=== PATIENT | female | born 1995 | race Caucasian/White ===

== ENCOUNTER 2023-01-18 10:50 | Outpatient (OUT) | payer MEDICAID, SELFPAY ==
[2023-01-18 11:34] LABS: Estimated Average Glucose 88 mg/dL; Glycohemoglobin A1C 4.7 % (4.5-6.2)
[2023-01-18 11:35] LABS: INR 0.97; Partial Thromboplastin Time 27.5 sec (22.3-36.2); Prothrombin Time 10.3 sec (9.0-11.6)
[2023-01-18 11:40] LABS: HCG Quantitative <1 mIU/mL
[2023-01-18 11:43] LABS: Thyroid Stimulating Hormone 0.739 uIU/mL (0.358-3.740)
[2023-01-18 13:46] LABS: Free T4 0.96 ng/dL (0.76-1.46)
== END 2023-01-18 10:51 | disposition home or self-care (01) ==
LOC: LAB 10:54
PROVIDERS: PCP Family Medicine; Visit Provider Obstetrics & Gynecology
DX: N92.0 Excessive and frequent menstruation with regular cycle (principal)
CPT/HCPCS: 36415; 83036; 84439; 84443; 84702; 85610; 85730

== ENCOUNTER 2023-01-21 10:55 | Outpatient (OUT) | payer MEDICAID, SELFPAY ==
--- NOTE | 2023-01-21 11:00 | US_ITS ---
The [address] [address] Patient Name: KELSIE SORIANO MRN: [id number] date: 1995 Sex: F Assigned Patient Location: US Current Patient Location: US Accession/Order Number: [id number] Exam Date: 01/21/2023 11:02 Report Date: 01/21/2023 16:02 At the request of: MAGI PRESTON Procedure: US pelvis transvaginal US pelvis transvaginal CLINICAL HISTORY: Menorrhagia With Regular Cycle N92.0 COMPARISON: 01/22/2022 CT pelvis. TECHNIQUE: Transvaginal transverse and longitudinal real-time grayscale echograms of the pelvis is performed. Color duplex and doppler spectral analysis performed. FINDINGS: The uterus measures 9.2 x 4.2 x 5.8 cm in size. Uterus is anteverted. The endometrial stripe thickness is up to 10 mm. The right ovary measures 1.9 x 3.2 x 1.6 cm and has normal appearance. Difficult to ascertain intraovarian blood flow due to the high lateral ovarian location but no gross concern for torsion based on sonographic appearance. The left ovary measures 2.2 x 2.5 x 2.4 cm and has normal appearance. Normal intraovarian blood flow. There is no free fluid in the posterior cul-de-sac. IMPRESSION: Normal for age pelvic ultrasound. Electronically authenticated by: SAMM KLEIN Date: 01/21/2023 16:02
== END 2023-01-21 10:56 | disposition home or self-care (01) ==
LOC: US 10:55
PROVIDERS: PCP Family Medicine; Visit Provider Obstetrics & Gynecology
DX: N92.0 Excessive and frequent menstruation with regular cycle (principal)
CPT/HCPCS: 76830

== ENCOUNTER 2023-02-02 21:05 | Outpatient (REF) | payer MEDICAID, SELFPAY ==
[2023-02-07 11:08] LABS: Age Gdln ACOG Testing Note (.); IGP, rfx Aptima HPV ASCU Note (.)
== END 2023-02-02 21:06 | disposition home or self-care (01) ==
LOC: LAB 21:05
PROVIDERS: PCP Family Medicine; Visit Provider Obstetrics & Gynecology
DX: Z12.4 Encounter for screening for malignant neoplasm of cervix (principal); Z11.51 Encounter for screening for human papillomavirus (HPV)
CPT/HCPCS: G0145

== ENCOUNTER 2023-02-08 07:49 | Outpatient (OUT) | payer MEDICAID, SELFPAY | END 2023-02-08 07:50 | disposition home or self-care (01) | LOC: PST 07:49 | PROVIDERS: PCP Family Medicine; Visit Provider Obstetrics & Gynecology | DX: Z01.818 Encounter for other preprocedural examination (principal); N92.0 Excessive and frequent menstruation with regular cycle; N93.9 Abnormal uterine and vaginal bleeding, unspecified; R10.2 Pelvic and perineal pain ==

== ENCOUNTER 2023-02-11 06:10 | Day surgery (SDC) | payer MEDICAID, SELFPAY ==
[2023-02-08 08:18] VITALS: BP 115/78; PULSE 78; RESP 14; TEMP 36.6; O2SAT 99; BMI 31.0
[2023-02-11] VITALS (10 sets, daily range): BP systolic 110–138; BP diastolic 70–80; PULSE 66–86; RESP 11–17; TEMP 36.4; O2SAT 96–99; BMI 30.9
[2023-02-11 06:29] LABS: Basophils Percent Auto 0.5 % (0.2-2.0); Eosinophils Absolute Auto 0.2 10^3/uL (0.0-0.7); Eosinophils Percent Auto 2.4 % (0.9-7.0); Hemoglobin 12.6 g/dL (12.0-16.0); Immature Granulocytes Abs Auto 0.03 10^3/uL (0.00-0.03); Immature Granulocytes Pct Auto 0.4 % (0.0-0.5); Lymphocytes Absolute Auto 1.8 10^3/uL (1.2-3.8); Lymphocytes Percent Auto 24.4 % (20.5-60.0); Mean Corpuscular HGB Conc 34.1 g/dL (29.9-35.2); Mean Corpuscular Hemoglobin 28.3 pg (26.7-34.0); Mean Corpuscular Volume 83.1 fL (81.0-99.0); Monocytes Absolute Auto 0.6 10^3/uL (0.3-0.8); Neutrophils Absolute Auto 4.8 10^3/uL (1.4-6.5); Neutrophils Percent Auto 64.3 % (43.0-75.0); Platelet Count 247 10^3/uL (150-450); Red Blood Count 4.45 10^6/uL (4.20-5.40); Red Cell Distribution Width 12.7 % (11.0-15.0); White Blood Count 7.4 10^3/uL (4.0-11.0)
[2023-02-11 06:51] LABS: HCG Quantitative <1 mIU/mL
[2023-02-11] MEDS: LACTATED RINGER'S SOLUTION 1,000 ML 50 ML IV (07:03)
--- NOTE | 2023-02-11 08:24 | PC.NURSE ---
Peripad in place with no drainage noted.
--- NOTE | 2023-02-11 08:31 | PC.NURSE ---
Peripad continues clean and dry at this time.
--- NOTE | 2023-02-11 08:44 | PM.ONB ---
Brief Operative Note Date of procedure: 02/11/23 Pre-op diagnosis: menorrhagia Post-op diagnosis: same Procedure: The patient was taken back to the OR where she was prepped and draped in the normal sterile fashion after being placed in the dorsal lithotomy position, after being placed under general anesthesia without difficulty. The anterior lip was grasped with a single tooth tenaculum. The patient was then gently sounds. The patient was gently sounded using Hegar dilators and the hysteroscope was passed through the cervix into the uterus where both ostia were seen. No gross evidence of polyps, fibroids or malignancy. A weighted speculum was placed in the patient?s vagina, the anterior tip of the cervix was identified and grasped with a single tooth tenaculum. The patient was gently sounded to roughly 10 cm. The cervical length was noted to be 5 cm. The Erna ablation apparatus was set to approximately 5 in length. This was placed in through the cervix and into the uterus. After the seal was tested, at that time the total ablation of 120 seconds was performed with the Erna without difficulty. All instruments were removed from the vagina. Anesthesia: KEY Surgeon: Bulmaro Spain Pathology: none sent Condition: stable Disposition: PACU
== END 2023-02-11 09:33 | disposition home or self-care (01) ==
PROVIDERS: PCP Family Medicine; Visit Provider Obstetrics & Gynecology
PROC: (CPT 952; principal; 2023-02-11 07:30)
DX: N92.0 Excessive and frequent menstruation with regular cycle (principal); N93.9 Abnormal uterine and vaginal bleeding, unspecified; R10.2 Pelvic and perineal pain; Z98.51 Tubal ligation status
CPT/HCPCS: 58563; 36415; 84702; 85025; J2704

== ENCOUNTER 2024-03-08 08:54 | Outpatient (OUT) | payer MEDICAID, SELFPAY ==
[2024-03-08 09:07] LABS: Basophils Percent Auto 0.5 % (0.2-2.0); Eosinophils Absolute Auto 0.1 10^3/uL (0.0-0.7); Eosinophils Percent Auto 2.2 % (0.9-7.0); Hematocrit 40.1 % (36.0-48.0); Hemoglobin 13.5 g/dL (12.0-16.0); Immature Granulocytes Abs Auto 0.01 10^3/uL (0.00-0.03); Immature Granulocytes Pct Auto 0.2 % (0.0-0.5); Lymphocytes Absolute Auto 1.4 10^3/uL (1.2-3.8); Lymphocytes Percent Auto 24.2 % (20.5-60.0); Mean Corpuscular HGB Conc 33.7 g/dL (29.9-35.2); Mean Corpuscular Hemoglobin 28.7 pg (26.7-34.0); Mean Corpuscular Volume 85.1 fL (81.0-99.0); Mean Platelet Volume 10.4 fL (9.5-13.5); Monocytes Absolute Auto 0.4 10^3/uL (0.3-0.8); Monocytes Percent Auto 7.4 % (1.7-12.0); Neutrophils Absolute Auto 3.9 10^3/uL (1.4-6.5); Neutrophils Percent Auto 65.5 % (43.0-75.0); Platelet Count 270 10^3/uL (150-450); Red Blood Count 4.71 10^6/uL (4.20-5.40); Red Cell Distribution Width 12.4 % (11.0-15.0); White Blood Count 5.9 10^3/uL (4.0-11.0)
[2024-03-08 10:54] LABS: Alanine Aminotransferase 22 U/L (14-59); Albumin Globulin Ratio 1.2; Albumin Level 4.1 g/dL (3.4-5.0); Alkaline Phosphatase 67 U/L (46-116); Anion Gap 11.4; Aspartate Amino Transferase 12 U/L (15-37); BUN Creatinine Ratio 14.3; Bilirubin Total 1.7 mg/dL (0.2-1.0); Calcium 9.2 mg/dL (8.5-10.1); Carbon Dioxide 30.3 mmol/L (21.0-32.0); Chloride 101 mmol/L (98-107); Cholesterol 158 mg/dL (<=200); Estimated GFR (African America >60 (>=60); Estimated GFR (Non-African Ame >60 (>=60); Free T3 2.98 pg/mL (2.18-3.98); Globulin 3.5 g/dL; Glucose 95 mg/dL (74-106); HDL Cholesterol 40 mg/dL (40-60); LDL Cholesterol Calculated 104.8 mg/dL; Potassium 3.7 mmol/L (3.5-5.1); Sodium 139 mmol/L (136-145); Thyroid Stimulating Hormone 1.044 uIU/mL (0.358-3.740); Total Protein 7.6 g/dL (6.4-8.2); Triglycerides 66 mg/dL (<=150); VLDL CHOLESTEROL 13.2 mg/dL
[2024-03-08 11:39] LABS: Estimated Average Glucose 100 mg/dL; Glycohemoglobin A1C 5.1 % (4.5-6.2)
[2024-03-09 10:11] LABS: Insulin 8.7 uIU/mL (2.6-24.9)
== END 2024-03-08 08:55 | disposition home or self-care (01) ==
LOC: LAB 08:55
PROVIDERS: PCP Family Medicine; Visit Provider Family Medicine
DX: E66.9 Obesity, unspecified (principal); R73.09 Other abnormal glucose
CPT/HCPCS: 36415; 80053; 80061; 83036; 83525; 84436; 84443; 84481; 85025

== ENCOUNTER 2025-04-03 11:53 | Emergency (ER) | payer SELFPAY ==
--- OUTSIDE RECORDS SUMMARY | 2024-04-10 06:15 | XMS_ITS ---
Author Organization The [facility] in [place] Address [address] [place] [address] Care Team Providers Care Tagman Name Role Phone Bruce Ramirez Primary Care Provider [phone] Allergies No Known Allergies REASON FOR VISIT diet check Medications Medication SIG (Take, Route, Fr equency, Duration) Notes Start Date End Date Status Adipex-P 37.5 MG 1 tablet before sheyla kfast Orally Once a day 04/10/2024 Active Social History Tobacco Use: Social History Observation Description Date Details (start date - stop date) Former Smoker 07/25/2017 - 07/25/2020 Tobacco Control (Standard) Question Answer Notes Tobacco use: Former smoker When did you start smoking? 07/25/2017 When did you stop smoking? 07/25/2020 How long has it been since y ou last smoked? 1-5 years Additional Findings: Tobacco non-user Ex -moderate cigarette smoker (10-19/day) Vital Signs Weight 172 lbs 04/10/2024 Height 66 in 04/10/2024 Blood pressure systolic 118 mm Hg 04/10/20 24 Blood pressure diastolic 72 mm Hg 024 BMI 27.76 kg/m2 04/10/2024 Encounters Encounter Location Date Provider Diagnosis [facility] [address] [place] [address] 04/10/2024 Bruce Ramirez Obesity E66.9 Assessments Encounter Date Diagnosis (ICD Code) Assessment Notes Treatment Notes Treatment Clinical Notes Section Notes 04/10/2024 Obesity (ICD-10 - E66.9) Plan Of Treatment Medication Medication Name Sig Start Date Stop Date Notes Adipex-P 37.5 MG 1 tablet before sheyla kfast Orally Once a day 04/10/2024 Progress Notes * Anastacia MUNOZ GDOB: [birth year] (28 yo F)Acc No.[id number]:04/10/2024 Progress Note Patient: Anastacia ARCINIEGA Provider: Maria A Ramirez ([facility])MD :1995 A ge:28 Y S ex:Female Date:04/10/2024 Address:[address] [place], [place] [address] Check In:10:16 AM ESTCheck O ut:10:56 AM EST Subjective: * Chief Complaints: * 1 . Diet check. * HPI: G eneral: finsihed 1 month lost 8 lb. * ROS: E ENT: hearing changes d enies. v isual changes d enies.?non-healing mouth sores d enies. s wollen glands or neck lumps d enies. h oarseness d enies. s ore throat d enies. d ifficulty swallowing d enies. n ose bleeds d enies. n dominic congestion d enies. e ar ache d enies. e ar discharge?denies. r inging in ears d enies. l ight sensitivity d enies. e ye pain d enies. b lurring d enies. e ye irritation d enies. d ouble vision d enies.?vision loss d enies. G eneral/Constitutional: Sweats: D enies. F atigue d enies. S leep problems d enies. A norexia d enies. M alaise d enies. W eight loss d enies.?Fatigue or Weakness d enies. F ever or Chills d enies. C ardiovascular: Shortness of Breath w/lying flat d enies. L ightheadedness/dizziness d enies. C hest tightness/ heavy pressure d enies. S welling of legs, ankles, or feet d enies. W aking up with shortness of breath d enies. C hest pain denies. P alpitations d enies. W eight gain d enies. R espiratory: Chronic or frequent cough d enies. C oughing up blood?denies. D ifficulty breathing d enies. P roductive cough d enies. S noring?denies. S hortness of breath that awakens from sleep (PND) d enies. C hest pain d enies. S putum production d enies. W heezing d enies. M usculoskeletal: Joint pain d enies. J oint Fluid d enies. B ack pain d enies. K nee pain d enies. N virgil pain d enies. J oint Stiffness d enies. M uscle cramps d enies. W eakness of muscles d enies. A rthritis d enies. M uscle aches d enies. P ain in shoulder(s) d enies. S wollen joints d enies. * Active Problem List E66.9 Obesity Modified On:03/06/2024W/U Status:confirmed * Medical History: M edical History Verified. * Surgical History: T ubes Tied , Ablation . * Hospitalization/Major Diagno stic Procedure: D enies Past Hospitalization. * Family History: F ather: alive, cirrohsis of liver, diagnosed with Unspecified essential hypertension. M other: alive, diagnosed with Diabetes mellitus without mention of complication, type II or unspecified type, not stated as uncontrolled, Unspecified essential hypertension. B rother(s): alive, Mentally Handicap. S on(s): alive. D aughter(s): alive, Febrile Seizures. 3 brother(s) . 1 son(s) , 2 daughter(s) . . * Social History: T obacco Use: T obacco Control (Standard) T obacco use: F ormer smoker W hen did you start smoking? 0 07/25/2017 W hen did you stop smoking? 0 07/25/2020 H ow long has it been since you last smoked??1-5 years A dditional Findings: Tobacco non-user E x-moderate cigarette smoker (10-19/day) Electronic Cigarette use C urrent user Y es Vape daily * Medications: T aking Adipex-P(Phentermine HCl) 37.5 MG Tablet 1 tablet before breakfast Orally Once a day , Medication List reviewed and reconciled with the patient * Allergies: N .K.D.A. Objective: * Vitals: W t:172lbs, Ht: 66 in, BP:118/72mm Hg, BMI:27.76Index, Ht-cm: 167.64 cm, Wt-k.02 kg. * Examination: P hysical Exam: GENERAL: w ell developed, well nourished, in no acute distress. HEAD: n ormocephalic/atraumatic. EYES: p upils equal, round and reactive to light, conjunctivae and sclerae normal. EARS: n o deformity or lesion of external ear, canals and TM appear normal bilaterally, TM's intact, not inflamed with normal light reflex, hearing grossly normal to conversational speech. NOSE: n o deformity, discharge, inflammation, or lesions.? MOUTH: m ucous membranes moist, normal oropharynx and posterior pharynx without lesions or exudates, tongue normal, dentition normal. NECK: n virgil supple, no masses or palpable cervical nodes, trachea midline, thyroid without nodules, masses, tenderness, or enlargement. CHEST: n o chest wall deformity, no chest wall tenderness.? LUNGS: n ormal respiratory effort and clear to auscultation, no wheezes, rales, or rhonchi, good air exchange. CARDIO: r egular rate and rhythm, normal S1 and S2, nor murmur, rub, or gallop. PULSES: n ormal capillary refill. ABDOMEN: s oft, non-distended, non-tender, no masses. MUSCULOSKELETAL: n o deformity or scoliosis noted, normal range of motion, joints normal, no erythema, edema, effusion, or ecchymosis. EXTREMITY: n o clubbing, cyanosis, edema, or deformity with normal ROM in both upper and lower bilateral extremities. NEUROLOGIC: g rossly normal. SKIN: n o rashes, ulcerations, or suspicious lesions. LYMPH NODES: n o cervical adenopathy, nodes normal. MENTAL STATUS: a lert and oriented x3, normal mood and affect. Assessment: * Assessment: 1. O besity - E66.9 (Primary) Plan: * Treatment: * * Sign off status: Completed Visit Status: C HK (Check Out) true * Provider: Maria A Ramirez ([facility])MD Date: 0 04/10/2024 Generated for Printi ng/Faxing/eTransmitting on: 0 04/03/2025 11:59 AM EDT History and Physical Notes * HPI (History of Present Illness) Category Sub-Category Detail Notes Category Not es General finsihed 1 month lost 8 lb Examination Category Sub-Category Detail Notes Category Not es Physical Exam GENERAL: well developed, well nourished, in no acute distress HEAD: normocephalic/atraum atic EYES: pupils equal, round and reactive to light, conjunctivae and sclerae normal EARS: no deformity or lesi on of external ear, canals and TM appear normal bilaterally, TM's intact, not inflamed with normal light reflex, hearing grossly normal to conversational speech NOSE: no deformity, discha rge, inflammation, or lesions MOUTH: mucous membranes chanelle st, normal oropharynx and posterior pharynx without lesions or exudates, tongue normal, dentition normal NECK: neck supple, no mass es or palpable cervical nodes, trachea midline, thyroid without nodules, masses, tenderness, or enlargement CHEST: no chest wall deform ity, no chest wall tenderness LUNGS: normal respiratory e ffort and clear to auscultation, no wheezes, rales, or rhonchi, good air exchange CARDIO: regular rate and rhy thm, normal S1 and S2, nor murmur, rub, or gallop PULSES: normal capillary ref ill ABDOMEN: soft, non-distended, non-tender, no masses RECTAL: MUSCULOSKELETAL: no deformity or scol iosis noted, normal range of motion, joints normal, no erythema, edema, effusion, or ecchymosis EXTREMITY: no clubbing, cyanosi s, edema, or deformity with normal ROM in both upper and lower bilateral extremities NEUROLOGIC: grossly normal SKIN: no rashes, ulceratio ns, or suspicious lesions LYMPH NODES: no cervical adenopat hy, nodes normal MENTAL STATUS: alert and oriented x 3, normal mood and affect
--- OUTSIDE RECORDS SUMMARY | 2024-06-18 10:09 | XMS_ITS ---
Author Organization The [facility] in [place] Address [address] [place] [address] Care Team Providers Care Console Attendant Name Role Phone Bruce Ramirez Primary Care Provider REASON FOR VISIT weight check Medications Medication SIG (Take, Route, Fr equency, Duration) Notes Start Date End Date Status Adipex-P 37.5 MG 1 tablet before sheyla kfast Orally Once a day 06/18/2024 Active Vital Signs Weight 162.2 lbs 06/18/2024 Height 66 in 06/18/2024 BMI 26.18 kg/m2 06/18/2024 Encounters Encounter Location Date Provider Diagnosis [facility] [address] [place] [address] 06/18/2024 Bruce Ramirez Obesity E66.9 Assessments Encounter Date Diagnosis (ICD Code) Assessment Notes Treatment Notes Treatment Clinical Notes Section Notes 06/18/2024 Obesity (ICD-10 - E66.9) Plan Of Treatment Medication Medication Name Sig Start Date Stop Date Notes Adipex-P 37.5 MG 1 tablet before sheyla kfast Orally Once a day 06/18/2024 Progress Notes * Anastacia SORIANO GDOB: [birth year] (28 yo F)Acc No.[id number]:06/18/2024 Patient: Nadege GABYFABIEN Anastacia Boateng :1995 A ge:28 Y S ex:Female Address:[address] [place] [address], [address] [address] * Refills Refill Adipex-P Tablet, 37.5 MG, Orally, 30, 1 tablet before breakfast, Once a day, Refills=0 Subjective: * Chief Complaints: * W eight check * Medical History: * Surgical History: * Hospitalization/Major Diagno stic Procedure: * Medications: Objective: * Vitals: W t:162.2lbs, Ht: 66 in, BMI:26.18Index, Ht-cm: 167.64 cm, Wt-k.57 kg. * Physical Examination: Assessment: * Assessment: 1. O [facility] - E66.9 Plan: * Treatment: * Procedure Codes: * true * Date: Generated for Mal núñez/Tin/Chayo on: 0 04/03/2025 12:00 PM EDT
--- OUTSIDE RECORDS SUMMARY | 2024-08-09 06:30 | XMS_ITS ---
Author Organization The [facility] in [place] Address [address] [place] [address] Care Team Providers Care Loan Teller Name Role Phone James Bruce Primary Care Provider Allergies No Known Allergies REASON FOR VISIT --SELF PAY 3 month f/u- adipex- says did not take it May or June Medications Medication SIG (Take, Route, Fr equency, Duration) Notes Start Date End Date Status Adipex-P 37.5 MG 1 tablet before sheyla kfast Orally Once a day 08/09/2024 Active Social History Tobacco Use: Social History [...] -moderate cigarette smoker (10-19/day) Vital Signs Weight 164.4 lbs 08/09/2024 Height 66 in 08/09/2024 Blood pressure systolic 112 mm Hg 08/09/19 25 Blood pressure diastolic 70 mm Hg 025 BMI 26.53 kg/m2 08/09/2024 Encounters Encounter Location Date Provider Diagnosis [facility] [address] [place] [address] 08/09/2024 Bruce Toddcassius Obesity E66.9 Assessments Encounter Date Diagnosis (ICD Code) Assessment Notes Treatment Notes Treatment Clinical Notes Section Notes 08/09/2024 Obesity (ICD-10 - E66.9) Plan Of Treatment Medication Medication Name Sig Start Date Stop Date Notes Adipex-P 37.5 MG 1 tablet before sheyla kfast Orally Once a day 08/09/2024 Progress Notes * Anastacia MUNOZ GDOB: [birth year] (28 yo F)Acc No.[id number]:08/09/2024 Progress Note Patient: Anastacia ARCINIEGA Provider: Maria A Ramirez ([facility])MD :1995 A ge:28 Y S ex:Female Date:08/09/2024 Address:[address] [place] [address], [address] Check In:10:30 AM ESTCheck O ut:11:19 AM EST Subjective: * Chief Complaints: * - -SELF PAY 3 month f/u- adipex- says did not take it May or June * HPI: G eneral: Been off it a month weight is up - was doing well;. D epression Screening: PHQ-2 (2015 Edition) L ittle interest or pleasure in doing things??Not at all F eeling down, depressed, or hopeless? N ot at all T otal Score 0 * ROS: E ENT: hearing changes d [...] Obesity Modified On:03/06/2024W/U Status:confirmed * Medical History: * Surgical History: T ubes Tied Ablation * Hospitalization/Major Diagno stic Procedure: D enies Past Hospitalization * Family History: F ather: alive, cirrohsis of liver, diagnosed with Unspecified essential hypertension. M other: alive, diagnosed with Unspecified essential hypertension, Diabetes mellitus without mention of complication, type II or unspecified type, not stated as uncontrolled. B rother(s): alive, Mentally Handicap. S on(s): alive. D aughter(s): alive, Febrile Seizures. 3 brother(s) . 1 son(s) , 2 daughter(s) . . * Social History: T obacco Use: T obacco Control (Standard) T obacco use: F ormer smoker W hen did you start smoking? 0 07/25/2017 W luanne did you stop smoking? 0 07/25/2020 H ow long has it been since you last smoked??1-5 years A dditional Findings: Tobacco non-user E x-moderate cigarette smoker (10-19/day) Electronic Cigarette use C urrent user Y es Vape daily * Medications: D iscontinuedAdipex-P(Phentermine HCl) 37.5 MG Tablet 1 tablet before breakfast Orally Once a day Medication List reviewed and reconciled with the patientDiscontinued Adipex-P(Phentermine HCl) 37.5 MG Tablet 1 tablet before breakfast Orally Once a day Medication List reviewed and reconciled with the patient * Allergies: N .K.D.A.no[Allergies Verified] Objective: * Vitals: W t:164.4lbs, Ht: 66 in, BP:112/70mm Hg, BMI:26.53Index, Ht-cm: 167.64 cm, Wt-k.57 kg. * Examination: P hysical Exam: GENERAL: [...] - E66.9 (Primary) Plan: * Treatment: * Procedure Codes: * Preventive Medicine: Screenings/Counseling: B IL ACTION PLAN Above Normal BMI Follow-up D ietary management education, guidance, and counseling * * Sign off status: Completed Visit Status: C HK (Check Out) true * Provider: Maria A Ramirez ([facility])MD Date: 0 08/09/2024 Generated for Printi wilton/Tin/eTransmitting on: 0 04/03/2025 11:59 AM EDT History and Physical Notes * HPI (History of Present Illness) Category Sub-Category Detail Notes Category Not es General Been off it a month weight is up - was doing well; Depression Screening PHQ-2 (2015 Edition) Little interest or pleasure in doing things?: Not at all Feeling down, depressed, or hopeless?: N ot at all Total Score: 0 Examination Category Sub-Category Detail Notes Category Not [...]
--- OUTSIDE RECORDS SUMMARY | 2024-09-10 05:15 | XMS_ITS ---
Author Organization The [facility] in [place] Address [address] [place] [address] Care Team Providers Care Record Label Internship Name Role Phone Bruce Ramirez Primary Care Provider [phone] Allergies No Known Allergies REASON FOR VISIT Presents to office alone for 1 month follow up on Adipex, self pay Medications Medication SIG (Take, Route, Fr equency, Duration) Notes Start Date End Date Status Adipex-P 37.5 MG 1 tablet before sheyla kfast Orally Once a day 09/10/2024 Active Social History Tobacco Use: Social History [...] Tobacco non-user Ex -moderate cigarette smoker (10-19/day) AUDIT-C (Standard) Question Answer Notes Did you have a drink contain ing alcohol in the past year? Yes How often did you have six o r more drinks on one occasion in the past year? Less than monthly (1 point) How many drinks did you have on a typical day when you were drinking in the past year? 1 or 2 drinks (0 point) How often did you have a dri nk containing alcohol in the past year? Monthly or less (1 point) Points 2 Interpretation Negative Vital Signs Weight 158.2 lbs 09/10/2024 Height 66 in 09/10/2024 Blood pressure systolic 124 mm Hg 09/10/19 25 Blood pressure diastolic 62 mm Hg 025 BMI 25.53 kg/m2 09/10/2024 Encounters Encounter Location Date Provider Diagnosis [facility] [address] [facility] [place] [address] 09/10/2024 Bruce Ramirez Obesity E66.9 Assessments Encounter Date Diagnosis (ICD Code) Assessment Notes Treatment Notes Treatment Clinical Notes Section Notes 09/10/2024 Obesity (ICD-10 - E66.9) Plan Of Treatment Medication Medication Name Sig Start Date Stop Date Notes Adipex-P 37.5 MG 1 tablet before sheyla kfast Orally Once a day 09/10/2024 Progress Notes * Anastacia SORIANO GDOB: [birth year] (29 yo F)Acc No.[id number]:09/10/2024 Progress Note Patient: Anastacia ARCINIEGA Provider: Maria A Ramirez ([facility])MD :1995 A ge:29 Y S ex:Female Date:09/10/2024 Address:[address] [place], [place] [id number] Check In:09:09 AM ESTCheck O ut:09:23 AM EST Subjective: * Chief Complaints: * P resents to office alone for 1 month follow up on AdipexSelf pay * HPI: G eneral: no de effects. * ROS: E ENT: hearing changes d [...] Tied Ablation * Hospitalization/Major Diagno stic Procedure: * Family History: F ather: alive, cirrohsis [...] T obacco use: F ormer smoker W luanne did you start smoking? 0 07/25/2017 W hen did you stop smoking? 0 07/25/2020 H ow long has it been since you last smoked??1-5 years A dditional Findings: Tobacco non-user E x-moderate cigarette smoker (10-19/day) Electronic Cigarette use C urrent user Y es Vape daily D rug/Alcohol: A JEAN-C (Standard) D id you have a drink containing alcohol in the past year? Y es H ow often did you have six or more drinks on one occasion in the past year? L ess than monthly (1 point) H ow many drinks did you have on a typical day when you were drinking in the past year? 1 or 2 drinks (0 point) H ow often did you have a drink containing alcohol in the past year? M onthly or less (1 point) P oints 2 I nterpretation N egative * Medications: T akingAdipex-P(Phentermine HCl) 37.5 MG Tablet 1 tablet before breakfast Orally Once a day Medication List reviewed and reconciled with the patientTaking Adipex-P(Phentermine HCl) 37.5 MG Tablet 1 tablet before breakfast Orally Once a day Medication List reviewed and reconciled with the patient * Allergies: N .K.D.A.no[Allergies Verified] Objective: * Vitals: W t:158.2lbs, Ht: 66 in, BP:124/62mm Hg, BMI:25.53Index, Ht-cm: 167.64 cm, Wt-k.76 kg. * Examination: P hysical Exam: GENERAL: [...] Procedure Codes: * Preventive Medicine: Screenings/Counseling: B SC ACTION PLAN Above Normal BMI Follow-up D ietary management education, guidance, and counseling See treatment section of progress note for complete details of management plan. T OBACCO ACTION PLAN Patient counselled on the dangers of tobacco use and urged to quit. 0 09/10/2024 . * * Sign off status: Completed Visit Status: C HK (Check Out) true * Provider: Maria A Ramirez ([facility])MD Date: 0 09/10/2024 Generated for Mal núñez/Tin/eTransmitting on: 0 04/03/2025 12:00 PM EDT History and Physical Notes * HPI (History of Present Illness) Category Sub-Category Detail Notes Category Not es General no de effects Examination Category Sub-Category Detail Notes Category Not [...]
--- OUTSIDE RECORDS SUMMARY | 2025-04-03 12:00 | XMS_ITS | Patient Health Record ---
Author Organization The [facility] in [place] Address [address] [place] [address] Care Team Providers Care Single Pass Soil Stabilizer Operator Name Role Phone Bruce Ramirez Primary Care Provider Allergies No Known Allergies Reason For Referral No Information Medications Medication SIG (Take, Route, Fr equency, [...] less (1 point) Points 2 Interpretation Negative Problems Problem Type SNOMED Code ICD Code Onset Dates Problem Status W/U Status Risk Notes Problem Obesity (934405030) Obesity (E66.9) Active confirmed Vital Signs Blood pressure diastolic 62 mm Hg 09/10/2024 Height 66 in 09/10/2024 Blood pressure systolic 124 mm Hg 09/10/2024 Weight 158.2 lbs 09/10/2024 BMI 25.53 kg/m2 09/10/2024 Encounters Encounter Location Date Provider Diagnosis [facility] [address] [place] [address] 04/10/2024 Bruce Hoy Obesity E66.9 [facility] [address] [place] [address] 05/09/2024 Bruce Hoy Obesity E66.9 [facility] [address] [place] [address] 08/09/2024 Bruce Hoy Obesity E66.9 [facility] [address] [place] [address] 09/10/2024 Bruce Hoy Obesity E66.9 [facility] [address] [place] [address] 04/03/2024 Bruce Hoy Obesity E66.9 [facility] [address] [place] [address] 06/18/2024 Bruce Hoy Obesity E66.9 Assessments Encounter Date Diagnosis (ICD Code) Assessment Notes Treatment Notes Treatment Clinical Notes Section Notes 04/10/2024 Obesity (ICD-10 - E66.9) 05/09/2024 Obesity (ICD-10 - E66.9) 08/09/2024 Obesity (ICD-10 - E66.9) 09/10/2024 Obesity (ICD-10 - E66.9) 04/03/2024 Obesity (ICD-10 - E66.9) 06/18/2024 Obesity (ICD-10 - E66.9) Plan Of Treatment Pending Test Test Name Order Date CMP (COMPLETE METABOLIC PANEL) 4 HEMOGLOBIN A1C (GLYCO) 03/06/2024 LIPID PANEL (CHOL/TRIG/HDL/LDL) 03/06/20 24 CBC WITH DIFF 03/06/2024 Insulin Level 03/06/2024 THYROID PANEL (T4/TSH/FREE T3) 4 Medical (General) History Surgical History Surgery Date(Month/Year) Tubes Tied Ablation
--- OUTSIDE RECORDS SUMMARY | 2025-04-03 12:00 | XMS_ITS | Encounter Summary ---
Author Organization [facility] Address [address] [place] [address] Care Team Providers Care Upward Bound Director Name Role Phone Sly Ramirez MD Primary Care Provider [phone] Encounter Details Date Type Department Care Team (Late st Contact Info) Description 01/21/2023 Abstract [facility] [address] [place] [id number] Bulmaro Spain DO [address] [address] Selene Mac, [facility] [address] Social History Tobacco Use Types Packs/Day Years Used Date Smoking Tobacco: Some Days Cigarettes Smokeless Tobacco: Never Alcohol Use Standard Drinks/Week Comments Yes 3 (1 standard drink = 0.6 oz pur e alcohol) Comments Unknown Sex and Gender Information Value Date Recorded Sex Assigned at Not on file Legal Sex Female 11:16 PM EDT Gender Identity Female 12/14/2022 11:52 AM EDT Sexual Orientation Not on file documented as of this encounter Plan of Treatment Not on file documented as of this encounter Visit Diagnoses Not on filedocumented in this encounter Care Teams Upward Bound Director Relationship Specialty Start Date End Date Sly Ramirez MD PCP - General Family Medicine 12/15/22 documented as of this encounter
--- OUTSIDE RECORDS SUMMARY | 2025-04-03 12:00 | XMS_ITS | Clinical Summary ---
Author Organization [facility] Address [address] [id number] Care Team Providers Care Training Officer Name Role Phone Sly Ramirez MD Primary Care Provider [phone] Allergies No known active allergies Medications No known medications Family History Medical History Relation Name Comments No Known Problems Daughter 1 Aubrie No Known Problems Daughter 2 Nani No Known Problems Son Trent Relation Name Status Comments Brother 1 Alive Brother 2 Alive Brother 3 Alive Daughter 1 Aubrie Alive Daughter 2 Nani Alive Father Alive Mother Alive Son Trent Alive Social History Tobacco Use Types Packs/Day Years Used Date Smoking Tobacco: Some Days Cigarettes Smokeless Tobacco: Never Tobacco Cessation:Ready to Q uit: Not Asked; Counseling Given: Not Answered Alcohol Use Standard Drinks/Week Comments Yes 3 (1 standard drink = 0.6 oz pur e alcohol) Comments Unknown Sex and Gender Information Value Date Recorded Sex Assigned at Not on file Legal Sex Female 11:16 PM EDT Gender Identity Female 12/14/2022 11:52 AM EDT Sexual Orientation Not on file Last Filed Vital Signs Vital Sign Reading Time Taken Comments Blood Pressure 110/72 02/17/2023 8:55 AM EDT Pulse - - Temperature - - Respiratory Rate - - Oxygen Saturation - - Inhaled Oxygen Concentration - - Weight 84 kg (185 lb 1.9 oz) 02/17/2023 8:55 AM EDT Height 165.1 cm (5' 5 ) 02/02/2023 9:44 AM EDT Body Mass Index 30.81 02/02/2023 9:44 AM EDT Plan of Treatment Health Maintenance Due Date Last Done Comments Pap Smear 2014 Influenza Vaccine (#1) 2025 Cervical Cancer Screening 03/17/2028 HPV/Cotest 03/17/2028 03/17/2023 Procedures Procedure Name Priority Date/Time Associated Diagnosis Comments THINPREP PAP AND HPV MRNA E6/E7 W/RFL HPV 16,18/45 Routine 03/17/2023 11:40 AM EDT Well woman exam with routine gynecological exam from Last 3 Months or Most Recently Relevant to Health Maintenance Results * THINPREP PAP AND HPV MRNA E6/E7 W/RFL HPV 16,18/45 (03/17/2023 11:40 AM EDT) us Bulmaro Spain DO LAB BLOOD ORDERABLES Final Resul t EXTERNAL LAB from Last 3 Months or Most Recently Relevant to Health Maintenance Insurance [employer] [place] Care Teams Training Officer Relationship Specialty Start Date End Date Sly Ramirez MD PCP - General Family Medicine 12/15/22
--- OUTSIDE RECORDS SUMMARY | 2025-04-03 12:00 | XMS_ITS | Encounter Summary ---
Author Organization [facility] Address [address] [facility] [place] [address] Care Team Providers Care Dust Puller Name Role Phone Sly Ramirez MD Primary Care Provider [phone] Encounter Details Date Type Department Care Team (Late st Contact Info) Description 02/17/2023 Abstract [facility] [address] [facility] [place] [id number] Lynn Purcell PA [address] [place], [place] [address] Social History Tobacco Use Types Packs/Day Years [...] on filedocumented in this encounter Care Teams Dust Puller Relationship Specialty Start Date End Date Sly Ramirez MD PCP - General Family Medicine 12/15/22 documented as of this encounter
--- OUTSIDE RECORDS SUMMARY | 2025-04-03 12:02 | XMS_ITS | CCD ---
Author Organization [facility] Care Team Providers Care Software Systems Engineer Name Role Phone AVINASH, DR REHMAN Attending Unavailable HOY, DR REHMAN Admitting Unavailable HOY, DR REHMAN Primary Care Unavailable HOY, DR REHMAN Consulting Unavailable ZIEBER, DR LIBBY Green Consulting Unavailable HOY, DR REHMNA Primary Care Unavailable West, DR Vanegas Consulting Unavailable PAY, DR UGARTE Attending Unavailable PAY, DR UGARTE Admitting Unavailable PAY, DR UGARTE Consulting Unavailable HOY, DR REHMAN Admitting Unavailable HOY, DR REHMAN Primary Care Unavailable HOY, DR REHMAN Consulting Unavailable HOY, DR REHMAN Attending Unavailable ZIEBER, DR LIBBY Green Consulting Unavailable HOY, DR REHMAN Admitting Unavailable HOY, DR REHMAN Primary Care Unavailable HOY, DR REHMAN Consulting Unavailable HOY, DR REHMAN Attending Unavailable HOY, DR REHMAN Attending Unavailable HOY, DR REHMAN Admitting Unavailable HOY, DR REHMAN Primary Care Unavailable HOY, DR REHMAN Consulting Unavailable Problems Active Problems Problem Classification Problem Date Documented Da te Episodic/Chronic Abdominal pain (9 sources) Unspecified abdominal pain; Translations: [Left lower quadrant pain] Onset: 04-02-2021 Episodic Calculus of urinary tract (4 sources) Calculus of kidney; Translations: [CALCULUS OF KIDNEY] Onset: 01-26-2022 Episodic Genitourinary symptoms and ill-defined conditions (1 source) Obstructive and reflux uropathy, unspecified; Translations: [OBSTRUCTIVE AND REFLUX UROPATHY UNS] Onset: 01-27-2022 Episodic Unclassified (3 sources) CONTACT W/AND (SUSP) EXPOS COVID-19; Translations: [CONTACT W/AND (SUSP) EXPOS COVID-19] Onset: 07-16-2021 Viral infection (1 source) COVID-19; Translations: [COVID-19] Onset: 07-30-2021 Past or Other Problems Problem Classification Problem Date Documented Da te Episodic/Chronic Acute bronchitis (1 source) Acute bronchitis, unspecified; Translations: [ACUTE BRONCHITIS UNSPECIFIED] Onset: 07-16-2021 Episodic Unclassified (1 source) CONTACT W/AND (SUSP) EXPOS COVID-19; Translations: [CONTACT W/AND (SUSP) EXPOS COVID-19] Onset: 07-27-2021 Results Test Name Value Interpretation Reference Range Facility US KIDNEYS BLADDERon 022 US KIDNEYS BLADDER EXAMINATION: US KIDNEYS BLADDER HISTORY: Kidney stone ; lower right flank pain COMPARISON: No relevant comparison available. TECHNIQUE: Ultrasound examination was performed of the kidneys and urinary bladder. FINDINGS: RIGHT KIDNEY: No evidence of pelvocaliectasis, mass, or calculi. Normal renal cortical parenchymal echogenicity. Color Doppler demonstrates blood flow within the kidney. Kidney: 9.9 x 5.3 x 5.2 cm LEFT KIDNEY: No evidence of pelvocaliectasis, mass, or calculi. Normal renal cortical parenchymal echogenicity. Color Doppler demonstrates blood flow within the kidney. Kidney: 10.4 x 5.2 x 5.6 cm BLADDER: No visible wall thickening, mass, or calculi. Post void residual: 37 mL URETERAL JETS: Visualized bilaterally. IMPRESSION: 1. Normal ultrasound appearance of the kidneys and urinary bladder. No specific findings to account for patient's symptoms. Electronically authenticated by: LIBBY CHAVIS Date: 2022-01-26 17:41 Normal [facility] CBC AUTO DIFFon 01-22-2022 BASO # 0.0 103/ul Normal 0.0-0.1 [facility] Comment on above: Performed By: #### C BC #### [facility] [address] [place] [address] Dr. Boris Ballard Basophils/100 WBC (Bld) 0.3 % Normal 0.2-2.0 [facility] Comment on above: Performed By: #### C BC #### [facility] [address] [place] [address] Dr. Boris Ballard EO # 0.1 103/ul Normal 0.0-0.7 [facility] Comment on above: Performed By: #### C BC #### [facility] [address] [place] [address] Dr. Boris Ballard Eosinophils/100 WBC (Bld) 0.7 % Critically low 0.9-7.0 [facility] Comment on above: Performed By: #### C BC #### [facility] [address] [place] [address] Dr. Boris Ballard Erythrocyte distribution width (RBC) [Ratio] 13.1 % Normal 11.0-15.0 [facility] Comment on above: Performed By: #### C BC #### [facility] [address] [place] [address] Dr. Boris Ballard Hematocrit (Bld) [Volume fraction] 35.7 % Critically low 36.0-48.0 [facility] Comment on above: Performed By: #### C BC #### [facility] [address] [place] [address] Dr. Boris Ballard Hemoglobin (Bld) [Mass/Vol] 12.0 g/dL Normal 12.0-16.0 [facility] Comment on above: Performed By: #### C BC #### [facility] [address] [place] [address] Dr. Boris Ballard IG # 0.05 10e3/ul Critically high 0.00-0.03 [facility] Comment on above: Performed By: #### C BC #### [facility] [address] [place] [address] Dr. Boris Ballard IG % 0.5 % Normal 0.0-0.5 [facility] Comment on above: Performed By: #### C BC #### [facility] [address] [place] [address] Dr. Boris Ballard LYMPH # 1.1 103/ul Critically low 1.2-3.8 [facility] Comment on above: Performed By: #### C BC #### [facility] [address] [place] [address] Dr. Boris Ballard Lymphocytes/100 WBC (Bld) 10.7 % Critically low 20.5-60.0 [facility] Comment on above: Performed By: #### C BC #### [facility] [address] [place] [address] Dr. Boris Ballard MANUAL DIFF REQ NO Normal [facility] Comment on above: Performed By: #### C BC #### [facility] [address] [place] [address] Dr. Boris Ballard MCH (RBC) [Entitic mass] 28.4 pg Normal 26.7-34.0 [facility] Comment on above: Performed By: #### C BC #### [facility] [address] [place] [address] Dr. Boris Ballard MCHC (RBC) [Mass/Vol] 33.6 g/dL Normal 29.9-35.2 [facility] Comment on above: Performed By: #### C BC #### [facility] [address] [place] [address] Dr. Boris Ballard MCV (RBC) [Entitic vol] 84.4 fL Normal 81.0-99.0 [facility] Comment on above: Performed By: #### C BC #### [facility] [address] [place] [address] Dr. Boris Ballard MONO # 0.6 103/ul Normal 0.3-0.8 [facility] Comment on above: Performed By: #### C BC #### [facility] [address] [place] [address] Dr. Boris Ballard Monocytes/100 WBC (Bld) 5.9 % Normal 1.7-12.0 [facility] Comment on above: Performed By: #### C BC #### [facility] [address] [place] [address] Dr. Boris Ballard NEUT # 8.7 103/ul Critically high 1.4-6.5 [facility] Comment on above: Performed By: #### C BC #### [facility] [address] [place] [address] Dr. Boris Ballard Neutrophils/100 WBC (Bld) 81.9 % Critically high 43.0-75.0 [facility] Comment on above: Performed By: #### C BC #### [facility] [address] [place] [address] Dr. Boris Ballard Platelet mean volume (Bld) [Entitic vol] 10.7 fL Normal 9.5-13.5 [facility] Comment on above: Performed By: #### C BC #### [facility] [address] [address] [address] Boris Ballard PLT 238 103/ul Normal 150-450 [facility] Comment on above: Performed By: #### C BC #### [facility] [address] [address] [address] Boris Ballard RBC 4.23 106/ul Normal 4.20-5.40 [facility] Comment on above: Performed By: #### C BC #### [facility] [address] [address] [address] Boris Ballard WBC 10.7 103/ul Normal 4.0-11.0 [facility] Comment on above: Performed By: #### C BC #### [facility] [address] ABD/PELVIS WO CONon 01-22 CT ABD/PELVIS WO CON EXAMINATION: CT ABD/PELVIS WO CON, 01/22/2022 8:18 AM EDT HISTORY: UNSPECIFIED ABDOMINAL PAIN , right flank pain, vomiting COMPARISON: None. TECHNIQUE: CT scan of the abdomen and pelvis was performed without IV contrast. CT dose reduction technique was used, including Automated Exposure Control. FINDINGS: LUNG BASES: No visible pulmonary or pleural disease. LIVER: No enlargement, atrophy, abnormal density, or significant focal lesion. BILIARY: No dilatation or calcification. PANCREAS: No lesion, fluid collection, ductal dilatation, or atrophy. SPLEEN: No enlargement or focal lesion. ADRENALS: No mass or enlargement. KIDNEYS: Asymmetric enlargement of the right kidney with perinephric stranding. Right hydroureteronephrosis extending to a 2 mm stone at the right ureterovesical junction axial image 126. Additional nonobstructing 3 mm right nephrolith. Normal left. BOWEL/MESENTERY: No visible mass, obstruction, or bowel wall thickening. Normal appendix AORTA/VASCULAR: No aneurysm or dissection. RETROPERITONEUM: No mass or adenopathy. LYMPH NODES: No adenopathy. URINARY BLADDER: No visible focal wall thickening, lesion, or calculus. PELVIC ORGANS: No visible mass. Pelvic organs appropriate for patient age. Tubal ligation clips ABDOMINAL WALL: No mass or hernia. BONES: No bony lesion or fracture. OTHER: Negative. IMPRESSION: 2 mm right ureterovesical junction stone mild to moderate associated obstructive uropathy Electronically authenticated by: KRISTIN MOISE Date: 2022-01-22 08:55 Normal [facility] CULTURE URINEon 01-22-2022 CULTURE URINE Culture Observations : LIGHT GROWTH OF MIXED GENITAL MARLON. NO POTENTIAL PATHOGENS SEEN. Normal [facility] Comment on above: Performed By: #### U RCX #### [facility] [address] [place] [address] Dr. Boris Ballard ER URINE PROFILEon 2 Bilirubin Ql (U) SMALL Abnormal NEGATIVE [facility] Comment on above: Performed By: #### C VDTBH #### [facility] [address] [place] [address] Dr. Boris Ballard Clarity (U) CLEAR Normal CLEAR [facility] Comment on above: Performed By: #### C VDTBH #### [facility] [address] [place] [address] Dr. Boris Ballard Color (U) DK. YELLOW Normal YELLOW [facility] Comment on above: Performed By: #### C VDTBH #### [facility] [address] [place] [address] Dr. Boris POLK A micrscopic examina tion will be performed if indicated. Normal [facility] Comment on above: Performed By: #### C VDTBH #### [facility] [address] [place] [address] Dr. Boris Ballard Glucose Ql (U) 100 mg/dl Abnormal NEGATIVE [facility] Comment on above: Performed By: #### C VDTBH #### [facility] [address] [place] [address] Dr. Boris Ballard Hemoglobin Ql (U) LARGE Abnormal NEGATIVE [facility] Comment on above: Performed By: #### C VDTBH #### [facility] [address] [place] [address] Dr. Boris Ballard Ketones Ql (U) Negative Normal NEGATIVE [facility] Comment on above: Performed By: #### C VDTBH #### [facility] [address] [place] [address] Dr. Boris Ballard LEUKOCYTES TRACE Abnormal NEGATIVE [facility] Comment on above: Performed By: #### C VDTBH #### [facility] [address] [place] [address] Dr. Boris Ballard Nitrite Ql (U) Negative Normal NEGATIVE [facility] Comment on above: Performed By: #### C VDTBH #### [facility] [address] [place] [address] Dr. Boris Ballard pH (U) 6.5 [pH] Normal 5-9 [facility] Comment on above: Performed By: #### C VDTBH #### [facility] [address] [place] [address] Dr. Boris Ballard Protein (U) [Mass/Vol] 100 mg/dL Abnormal NEGATIVE/ TRACE [facility] Comment on above: Performed By: #### C VDTBH #### [facility] [address] [place] [address] Dr. Boris Ballard SPEC GRAVITY >=1.030 Abnormal 1.005-<=1.025 [facility] Comment on above: Performed By: #### C VDTBH #### [facility] [address] [place] [address] Dr. Boris Ballard UR MICRO IND INDICATED Normal [facility] Comment on above: Performed By: #### C VDTBH #### [facility] [address] [place] [address] Dr. Boris Ballard Urobilinogen Qn (U) 2.0 {Maeve'U}/dL Abnormal 0.2 - 1.0 [facility] Comment on above: Performed By: #### C VDTBH #### [facility] [address] [place] [address] Dr. Boris Ballard LIPASEon 01-22-2022 Lipase [Catalytic activity/Vol] 66.0 U/L Critically low 73.0-393.0 [facility] Comment on above: Performed By: #### L IPA, CMP #### [facility] [address] [address] [address] Boris Ballard PREG HCG QUALon 01-22-2022 , QUAL Negative Normal NEGATIVE [facility] Comment on above: Performed By: #### P REG #### [facility] [address] [address] [address] Boris Ballard PROF 14(COMP METB)on 022 Albumin [Mass/Vol] 3.9 g/dL Normal 3.4-5.0 [facility] Comment on above: Performed By: #### L IPA, CMP #### [facility] [address] [address] [address] Boris Ballard Albumin/Globulin [Mass ratio] 1.1 {ratio} Normal [facility] Comment on above: Performed By: #### L IPA, CMP #### [facility] [address] [place] [address] Dr. Boris Ballard ALP [Catalytic activity/Vol] 63 U/L Normal 46-116 [facility] Comment on above: Performed By: #### L IPA, CMP #### [facility] [address] [place] [address] Dr. Boris Ballard ALT [Catalytic activity/Vol] 17 U/L Normal 14-59 [facility] Comment on above: Performed By: #### L IPA, CMP #### [facility] [address] [place] [address] Dr. Boris Ballard Anion gap [Moles/Vol] 11.9 mmol/L Normal [facility] Comment on above: Performed By: #### L IPA, CMP #### [facility] [address] [place] [address] Dr. Boris Ballard AST [Catalytic activity/Vol] 9 U/L Critically low 15-37 [facility] Comment on above: Performed By: #### L IPA, CMP #### [facility] [address] [address] [address] Boris Ballard Bilirubin [Mass/Vol] 1.0 mg/dL Normal 0.2-1.0 [facility] Comment on above: Performed By: #### L IPA, CMP #### [facility] [address] [address] [address] Boris Ballard Calcium [Mass/Vol] 8.7 mg/dL Normal 8.5-10.1 [facility] Comment on above: Performed By: #### L IPA, CMP #### [facility] [address] [address] [address] Boris Ballard Chloride [Moles/Vol] 106 mmol/L Normal 98-107 [facility] Comment on above: Performed By: #### L IPA, CMP #### [facility] [address] [address] [address] Boris Ballard CO2 [Moles/Vol] 25.5 mmol/L Normal 21.0-32.0 [facility] Comment on above: Performed By: #### L IPA, CMP #### [facility] [address] [address] [address] Boris Ballard Creatinine [Mass/Vol] 1.09 mg/dL Critically high 0.55-1.02 [facility] Comment on above: Performed By: #### L IPA, CMP #### [facility] [address] [address] [address] Boris Ballard EGFR-AF BANGLADESHI >60 Normal >=60 [facility] Comment on above: Performed By: #### L IPA, CMP #### [facility] [address] [address] [address] Boris Ballard EGFR-NON AF BANGLADESHI 60 mL/min/1.73m2 Normal >=60 [facility] Comment on above: Performed By: #### L IPA, CMP #### [facility] [address] [address] [address] Boris Ballard Globulin (S) [Mass/Vol] 3.6 g/dL Normal [facility] Comment on above: Performed By: #### L IPA, CMP #### [facility] [address] [address] [address] Boris Ballard Glucose [Mass/Vol] 121 mg/dL Critically high 74-106 [facility] Comment on above: Performed By: #### L IPA, CMP #### [facility] [address] [place] [address] Dr. Boris Ballard Potassium [Moles/Vol] 3.4 mmol/L Critically low 3.5-5.1 [facility] Comment on above: Performed By: #### L IPA, CMP #### [facility] [address] [place] [address] Dr. Boris Ballard Protein [Mass/Vol] 7.5 g/dL Normal 6.4-8.2 [facility] Comment on above: Performed By: #### L IPA, CMP #### [facility] [address] [place] [address] Dr. Boris Ballard Sodium [Moles/Vol] 140 mmol/L Normal 136-145 [facility] Comment on above: Performed By: #### L IPA, CMP #### [facility] [address] [place] [address] Dr. Boris Ballard Urea nitrogen [Mass/Vol] 19.0 mg/dL Critically high 7.0-18.0 [facility] Comment on above: Performed By: #### L IPA, CMP #### [facility] [address] [place] [address] Dr. Boris Ballard Urea nitrogen/Creatini ne [Mass ratio] 17.4 mg/mg Normal [facility] Comment on above: Performed By: #### L IPA, CMP #### [facility] [address] [place] [address] Dr. Boris Ballard URINE MICROSCOPIC ONLYon BACTERIA SMALL Abnormal NONE SEEN [facility] Comment on above: Performed By: #### C VDTBH #### [facility] [address] [place] [address] Dr. Boris Ballard Bacteria identified Cx Nom (U) INDICATED Normal [facility] Comment on above: Performed By: #### C VDTBH #### [facility] [address] [place] [address] Dr. Boris Ballard CAST NONE SEEN Normal NONE SEEN [facility] Comment on above: Performed By: #### C VDTBH #### [facility] [address] [place] [address] Dr. Boris Ballard Crystals LM Nom (Urine sed) NONE SEEN Normal NONE SEEN [facility] Comment on above: Performed By: #### C VDTBH #### [facility] [address] [place] [address] Dr. Boris Ballard Epithelial cells LM Ql (Urine sed) MODERATE Abnormal NONE SEEN /RARE [facility] Comment on above: Performed By: #### C VDTBH #### [facility] [address] [place] [address] Dr. Boris Ballard MUCOUS TRACE Abnormal NONE SEEN [facility] Comment on above: Performed By: #### C VDTBH #### [facility] [address] [place] [address] Dr. Boris Ballard RBC 10-20 Abnormal 0-2 [facility] Comment on above: Performed By: #### C VDTBH #### [facility] [address] [place] [address] Dr. Boris Ballard WBC 0-2 Abnormal NONE SEEN [facility] Comment on above: Result Comment: Micr oscopic performed on unspun urine due to low volume. Performed By: #### C VDTBH #### [facility] [address] [place] [address] Dr. Boris Ballard Covid-19 PCR ([facility])on SARS-CoV-2 (COVID-19) RNA DIANE+probe Ql (Unsp spec) Detected Critically abnormal NOT DETECTED [facility] Comment on above: Result Comment: This test is not yet approved or cleared by the [place] FDA. When there are no FDA-approved or cleared tests available, and other criteria are met, FDA can make tests available under an emergency access mechanism called an Emergency Use Authorization (EUA). The EUA for this test is supported by the [employer] Engineer of Health and Human Service's (HHS's) declaration that circumstances exist to justify the emergency use of in vitro diagnostics for the detection and/or diagnosis of the virus that causes COVID-19. This EUA will remain in effect (meaning this test can be used) for the duration of the COVID-19 declaration justifying emergency of IVDs, unless it is terminated or revoked by FDA (after which the test may no longer be used). Performed By: #### C VDTBH #### [facility] [address] [place] [address] Dr. Boris Ballard INFLUENZA A AND B AGon 07-14 [facility] SEE BELOW Normal [facility] Comment on above: Result Comment: Nega tive for Flu A protein angiten. Infection due to Flu A cannot be ruled out. Flu A angiten in the sample may be below the detection limit of the test. Performed By: #### I NFLUAB #### [facility] [address] [place] [address] Dr. Boris Ballard INFLUBNEG SEE BELOW Normal [facility] Comment on above: Result Comment: Nega tive for Flu B protein antigen. Infection due to Flu B cannot be ruled out. Flu B antigen in the sample may be below the detection limit of the test. Performed By: #### I NFLUAB #### [facility] [address] [place] [address] Dr. Boris Ballard INFLUENZA A AG Negative Normal NEGATIVE SEE COMMENT [facility] Comment on above: Performed By: #### I NFLUAB #### [facility] [address] [place] [address] Dr. Boris Ballard INFLUENZA B AG Negative Normal NEGATIVE SEE COMMENT [facility] Comment on above: Performed By: #### I NFLUAB #### [facility] [address] [place] [address] Dr. Boris Ballard INTERNAL CONTROLS Within Normal Limits Normal Wi thin Normal Limits [facility] Comment on above: Performed By: #### I NFLUAB #### [facility] [address] [place] [address] Dr. Boris Ballard [facility]on [facility]-25 SARS-CoV-2 (COVID-19) RNA DIANE+probe Ql (Unsp spec) Not detected Normal NOT DETECTED [facility] Comment on above: Result Comment: This test is not yet approved or cleared by the [place] FDA. When there are no FDA-approved or cleared tests available, and other criteria are met, FDA can make tests available under an emergency access mechanism called an Emergency Use Authorization (EUA). The EUA for this test is supported by the [employer] Engineer of Health and Human Service's (HHS's) declaration that circumstances exist to justify the emergency use of in vitro diagnostics for the detection and/or diagnosis of the virus that causes COVID-19. This EUA will remain in effect (meaning this test can be used) for the duration of the COVID-19 declaration justifying emergency of IVDs, unless it is terminated or revoked by FDA (after which the test may no longer be used). When diagnostic testing is negative, the possibility of a false negative should be considered in the context of a patient's recent exposures and the presence of clinical signs and symptoms consistent with SARS-CoV-2. Performed By: #### [facility] #### [facility] [address] [place] [address] Dr. Boris Ballard Pre-Certification Formon Pre-Certification Form [id number]#1.00CD:12 7 [facility] Physician Referralon 021 Physician Referral [id number]#[id number]:12 7 [facility] Ambulatory Clinical Summaryo n 04-03-2021 Ambulatory Clinical Summary {[id number]}C [id number] [facility] Formson 04-03-2021 Forms [id number]#1.00CD:12 7 [facility] US APPENDIXon 04-02-2021 US APPENDIX EXAM: US APPENDIX HISTORY: Right lower quadrant pain COMPARISON: None. TECHNIQUE: Ultrasound evaluation of appendix. FINDINGS: Appendix is identified within the right lower quadrant and is 10 mm in diameter. No appreciable wall thickening, free fluid, or enlarged lymph nodes. IMPRESSION: 1. Prominent appendix, 10 mm in diameter (normal less than or equal to 6 mm), but no appreciable inflammatory changes. No tenderness while imaging directly over the appendix. Correlate clinically. CT imaging could be performed for additional evaluation if clinically indicated. Electronically authenticated by: LIBBY WILBERELIZA Date: 2021-04-02 11:41 Normal [facility] Consent for COVID Vaccineon 11-29-2020 SARS-CoV-2 (COVID-19) RNA DIANE+probe Ql (Unsp spec) [id number]#1.00CD:12 7 [facility] Coding Summary.on 11-20-2020 Coding Summary. CD:[id number] Gh0bW w+PGhlYWQ+HD7EKZKeQ39eoUI lsJ5JZ0jUSH3ZMVDBCNPEYM9T YW1qmZE2BRheA3PfqjYz PjatkKFpXE89UHg0GLC8rRtfZ BifnP2rvGCeF6u1IsOiRD03oJ 97HRjyOMJiOqD3BlAvuwfuiTV y P6wpNlErbAVaNij+PHRhYmxlI HdpZHRoPScxMDAlJyBzdHlsZT 3vJw9jNNWvLWCngImjfFRmNoQ j b5rlOZFzRZceZU5kgQmpD1Tuy PA2UTDsg1e4Dz18jHY+PHRkIH I2iGwcXLtpu568DjElt5tgIMH 3 uEQoZDyqBBI1N51ck2J6YPPiO LLtGKT3oDW0gD4pxRblicwoE5 UkpYGbXnP1OHT7rKDwcI6lkFe n gkvehW7tHfl+K48BON7KDXARJ B1PMql5I2ZzLnsugLK+PC90YW TeJB56zXOitJZju0jhbUn1YtZ w RNHoMUH0kUwlMMjqa5VmANGwE 45zkHZpa5S4NUMvyNgyvLJtLo MrqCL3wO3jGDbnvhcxn8ffohq n Lcuag1mxfv56zG45M20eWKrtX RJdNPE0HKCsAFMnzIcxhy7lcW 9wIi8+LHzae5xmv4lrvUe5JzB w TWJskvKejJutMDA4q5CeDu22Q 7XxfVnup2AlTtc8wx42gSZau4 G0mKZ6YIdsBTEbcU3mHGsxYnJ 6 OCBeKaJcsJ53bEWzWJkcPx8om CfnkRxkTC2hNLBsqczeLQDejB 9iVYEwbIMprWtrJB1nTMMbcjz m k693JvPtDEC5UDJjmDWzY4Vmg U4pFiTqTIShYVClQ4YmdIIrTN niC222UUkgUaG0FOAhbyOpB4M s VTTndHkeLcR7s2U3Pt0Qc3Zad zafYFO0HMtoEMC9YwV3DuTkYm C0S6DdBkh5FRQtpMroAT5wO7G h KKCsjgaycsusvHZ6XQKyHCUfu Q27bNXpQRvmQi6ry9T9y640CJ HjLALtgL87Pv8guOsgRQBklES U qN0gmyeep8ewuwycDbUyHJJnT Ij8UNz7EQUqkSalLtFaWKO8Nd Y7PVT4dRVtnF4ctCivjjursI3 w Oyc+J39orM5hAYA0XEG0hseyL FGnuaVrLW07MA98R0AvUatjuE FibGU+ZPJchkYkgDsaYF4uJmK j l6flb1EqEFolL3PzDQLwFDimI aa5LXJaFJO4cKQ1uK1qKHNwEH xcv6O2nVN3C6BsamTilw1jp3b s RXFmILrkC97psCIhd6T4GZIyh BX8RALnxBmiEsJmhV29Fsk+PG OyfIgll7VoDmitb8rjh8qzkVv 9 SoYmUXIngiIunDktURY8l4ZnS x35Y55uZTpnLAMoWQSdFVRzIR DxxYzbuk8iuO3yRl6+PGNvbCB 3 hFU1dA8wIQVdJuH7NFcwZ725W cChjZRgDhuym6gqx0mzqBd3Jf SdDSUjuqLqrEsaNHS4z4FzCx4 8 D16pSXhlHROtWFEbGZSvJQTpc Axxnj1kbH2nQz6+NO8dz8aays 49uF86nPL+LHGlEJB2wBvmCUv w FKNlyK8sSSdaGeC9ACHpWuWrk U70bZHmAZbuHt9yfVqsaTqsAG 8dUGYqxcsgw572TtFjn5ldDFO w tZFaSPirUUK6Y58br5V3WELoQ OWaQPF5yFM2uD0qgVceprfecE CaeNolbmFvkWvxCLbuAGzgI88 6 IHRvcDsnPlBhdGllbnQgTmFtZ El2O5UkUrm3AXXbbTulFO3llH KxDMcvBm3txBrpiDdhWS0sZBQ p okepj537SzJvc7nvFFEmxRNrY PjgQTB5N22ub9E8NPVyGSPdZQ U2vPO4aQ5ytViorlazrZCcmOx g jsDzrWftLLecIObfG852MGZoa FzjVhTtclFkNSSxrYY0GU65SQ 07wXBwt9T8nDT7M7VgBXOrrih t rvsjrEG3SLNrYEWnjV71Ix6ju MtcNi4cUFAmGEH8EBDnqTBlG9 IhrE4uLiGrUGHqLYLmB5ZnmBQ t MKpyX626HTcaDwT0VEJlzgHrB 5YyDFCidMsvUaE5d4P8Iz1CZ6 T9VZ19EN82fPZim8G4dVI2E1V h GJLyslirjkcvhZS1ZKCrDCTzt Z64Je9saThtNp8nXJQeUCC0CI CidXRmC5JvgQ3rQkBvGECeUNN w K5PtuDAkLYviR539FUeuZtL7A REoakTxS3KoTHBlgZahMpA4l5 C7Gw6BAWw3EF64BW01nFIjg6D 5 nZS4J5CpYFZykdlrbykrlZV1R BXwYKEbaO32Sh6dtMtsCm3pHX PwOMN7GUQrtAWnN2FbmH7vGwZ j FJDxPCDiX8EpxFXpSXymZ036S NtsKjQ3AIOpwdSyW6CaSYQpnG ffNrM6w0D7Ht9DJTDhXE83KAM 5 fAH5HJ14YF22K3FmXjzliTTeg +PHRhYmxlIHdpZHRoPScxMD IxEeSqiWflCT3tZh4zTEUwFBX v wIxvzLKfOxKmd3feHXSnKYjrX A3dvXhuH6LflRH6WMLjy1i7Jr 77H37uI1QgiPL+EOXnuRJ7lYH 0 pV4nJcRcPsR6QQtkT397PxVpe SMuXwmvj1cpj5mtzOp9ZwR4VY LxaaBclCrxNQD3c3DtCs94A46 s IHdpZHRoPSIxNSUiIHZhbGlnb b3ylB7vGv2+IRMjdOC8zSH2wF 9oDgZzLiK6PHreK705PcKbhRL v Hdpet8pys8wqaKm4JkPdYOFtg kOdxIpaGPJ0w5SvHd64U5EmzN vgz6RfKcp6tx04mFQob7P1wVC 9 F8BiEXDqqcfzuTEjmEdxNG8vN RKkmvndHCUunD4xVCHmE3b0Dz UbNaY8TFjmS2LtawS0CJDcsZE g VYalSEH9O09rh6F0GNXmSSKhF NP1rRU6sH3mjNpmtjtrqGVmuA mezuXptHuvTMxkGCrsB036HBW v xVaeKQCrkD7pRAXoyAFkjOotN O5sPJLdtlkdOrDAM6jHZlohVu VCRUtBSDwvdGQ+WBSjKQJ2eSx l ZNvlXIIfvO3wDQTdS8e3IcGuU rT1OUgqO8EbNBMjnnlxFz68iX 2hVzAoSoB5SFfiB0BpsmK4SKF w cELqZDzfCRH1V64fv4J7MPEzF YJqPUM1lUP1bV8mkQoftyrpsS RliRljffKwiMfrHXdqIKcoC26 6 OACstMuxVyGjOaUzYuU7FXI8H 8QvKbv7EIUjeRbvFV6anDMnAW yfYz7hwBlrhNjzGE1oGJJnajk w RPBasE1kHCWtbVZlvPlhFY8kI SAavtkma990BsFaJNJ6OJGvcW MqC1OgtR5lRrDeXXIdPDSpL6E l sXLfJPzxF534JKmiWpY3EALyh dSkV6ImMMZfnCsoEcQ6m9K0Mm 4yNyBZZWFyczwvdGQ+PHRkIHN 0 nQefAZklRLZloY1pIAMeB9n3J fTvSdJ6EXqwB2BxHOLqmprgKj 44iC1zDyFfNlB5RHglC0PlwjH 6 YPEeiVQrTNjeEEL7P52bk5H9T ISbGKOrXYY1pTB7mZ7qfUtgls ogbGVmdDsgdmVydGljYWwtYWx p U132QMQgoXthAyLnfOIjFUeoq GQ+NVNnMXE2lJrsHAozDBUchH 0qRAKcR5d2FuXcMkG1EUaaT9T h DNRinmuqTy34cT8cApCaXmQ3W BmjB8TrxbJ9GEHkpVDnKEzzHG A4P84mu9V2VBJjBSMkAOP0iSV 4 fG3biIsjnsnraEGimLitygPyg PcmRMajPEwwW497HOTzqSjuJu DdJ2FgapphQbubgKR+FB65cy2 8 U1HlTommMep5WZThQAE2dVM3w N8oGQWaEVgqv8S1vKX4U0Xrtk Hjwm4ur5poFJJiCTulN24loAK w q8G4HDQbqXR2TGQznDjtZvVxf G93Oyc+FBRxnTaan8GfQvxup3 vdr4sqvEp5AkCnJLFeacTucOq u ZQK2o6UmZi68O73qURayGTTfG OMhWBPqRXNunYlvvj4gtA5lAu 8+JSOafYE3yZU2jW7xMdQaAxS 2 DXhgE011JiMgwOOnIrfkv1xav 4yijIo8DvKxEAPgvvZvtDxnEQ H9s9LkBs99D3CcgPxip1JrJmp 0 iu89zKUju2Y7bYF7L1BiDQPbq xmqmJPehYauDP3iIBWviuuuEV PisJ3wGFNjO3t4FfExXiP3KNf u A4KlnzA7YIDmyXKjDMLiuVMHt Q0uvtotb5gmftebHzNyVEEnAV a7OWt8OWEnmDaeTjMqJQV8HrH 2 YXA3nMVxxY3ymNzigpovdH2gN yc+OLt9p9xudMPpUY1yoJL7GB 95GT13qCKii4E7dRV4B1IfBNM p jcyfvgnfoSX4VGWjDLWqmY77I f2vcWynKz7uSUKqKEW2CEEiiG WsH4ExhO5rRxZyVVAsYEAoK0L l zVScNWkpQ231SBabRwE4WEXxa yOwY3OmHBMakCcpGrP4d4L6Xs 2WJO53JV73CS17wUNyb1P0hIQ 9 U6CjEGCbpiqhfvcsrFG2ISSuW AVotQ33Sr2spWjxRy5iWTRuZL I6INTdnSInP1NhmR8vErFjZFM w QQReH9UbzMExHIpgY202QZnqT eF6XGVayvLlG0JnEBPuxXupGw E5c7S4Mr4KYf69IJ72NT29cFF g i2R1cMK5Y4ItNXSqrutoealbb PR0WXCqGQHusU09Fl5zcTksRt 7iYWGkHJQ6SKEfkRTcW2PkrB3 y VaCpRHZeVGYeR2KzjLWyIBnfD 692RUrlJwR3OGXbnuZmP4WlMF AgeCfdCwM6m7A5Bs7LHTjjpgl 8 J5TfFzklpEK+HL82LLSxDY59u TGupEUfv6aulDw9DfJsNHCtOW X6vIxnXIlot0NyJOXvV48joRK w c2U6 (more content not included)... Normal [facility] Consent for COVID Vaccineon 11-03-2020 SARS-CoV-2 (COVID-19) RNA DIANE+probe Ql (Unsp spec) [id number]#1.00CD:12 7 [facility] Consent for Treatmenton 10-23 Consent for Treatment [id number]#1.00CD:12 7 [facility] Encounters Encounter Date Encounter Type Care Provider Facility Start: 01-26-2022 End: 01-27-[address] SHERIE RAMIREZ Facility:[facility] Start: 01-22-2022 End: 01-22-[address] SHERIE RAMIREZ Facility:[facility] Start: 07-27-2021 End: 07-27-[address] SHERIE RAMIREZ Facility:[facility] Start: 07-13-2021 End: 07-13-[address] SHERIE RAMIREZ Facility:[facility] Start: 04-02-2021 End: 04-03-[address] SHERIE RAMIREZ Facility:[facility] Payers Date Payer Category Payer Unknown [id number] 2.16.84 [id number] 1993 Unknown [id number] 2.16.84 [id number] 1993 Unknown [id number] 2.16.84 [id number] 1993 Unknown [id number] 2.16.84 [id number] 1993 Unknown [id number] 2.16.84 [id number] 1959 Unknown [id number] Clinical Note 04-03-2021 Note Date & Type Note Facility 04-03-2021 Note Chief Complaint referral for abdominal pain HPI Staff 25 year old female presents on consultation from Dr. Ramirez for abdominal pain. Several day history of right lower quadrant pain, primarily after eating, that occasionally radiates across lower abdomen to left lower quadrant. Denies nausea, vomiting, constipation or diarrhea. Prescribed Flagyl and Cefdinir, she has not started either one due to breast feeding concerns. History of Present Illness 25 yo female referred for lower abdominal pain; Review of Systems PHQ Score Initial Depression Screen Score: 0 ROS - Provider Constitutional: no fever, no sweats, no weight loss. Eyes: no glasses, no blurred vision, no visual loss. ENMT: no dentures, no hoarseness, no swallowing difficulties, no hearing loss, no ear infection(s), no nose bleeds. Cardiovascular: normal blood pressure, no chest pain, regular heartbeat, no heart murmur. Respiratory: no shortness of breath, no cough, no asthma, no wheezing. Gastrointestinal: no nausea, no vomiting, no diarrhea, no constipation, no blood in stool, no change in bowel habits, yes abdominal pain, no hepatitis. Genitourinary: no kidney stones, no urine infection, no dysuria. Musculoskeletal: no pain, no weakness. Skin: no changing moles, no rash, no skin lumps. Neurologic: no seizures, no epilepsy, no headache. Psychiatric: no emotional or psychiatric problem. Heme/Lymph: no bleeding problems, no anemia, no blood clots, no transfusions. Allergy/Immunologic: no swollen lymph nodes/glands, no IV drug abuse. Other: Additional ROS info: Except as noted in the above Review of Systems and in the History of Present Illness, all other systems have been reviewed and are negative or noncontributory. Physical Exam Vitals & Measurements T: 36.5 ?C (Temporal Artery) HR: 80(Peripheral) RR: 16 BP: 122/82 HT: 165.1 cm HT: 165.1 cm WT: 83.6 kg WT: 83.6 kg BMI: 30.67 HEENT: normal conjunctiva, sclera clear, no scleral icterus, EOM intact, PERRLA, oral mucosa moist without lesions. Neck: trachea midline, no mass, symmetric, no thyromegaly or nodules, no adenopathy Respiratory: lungs CTA, respirations non labored. Cardiovascular: regular rate and rhythm, no murmur, no pedal edema or varicosities. Gastrointestinal: obese, soft, non distended, no tenderness, no masses, no palpable hernias, diastasis recti no, no hepatosplenomegaly; normal bs Lymphatic: no cervical adenopathy, Musculoskeletal: normal gait, digits and nails without infection, nodes, cyanosis, clubbing. Skin: no rashes, no lesions, no ulcers, no subcutaneous nodules, induration. Psychiatric/Neuro: oriented to time, place, person, judgement normal, affect appropriate for age, insight intact, no focal deficits. Tests: x-rays reviewed, review of old records completed, Assessment/Plan 1. Abnormal abdominal ultrasound (R93.5: Abnormal findings on diagnostic imaging of other abdominal regions, including retroperitoneum) slight dilation of appendix on US, no inflammation or wall thickening, no free fluid; no tenderness over area; will check abd/pelvic ct scan for further evaluation; will call patient with results; patient instructed to go to ED if severe or persistent pain, fevers, N/V; call sooner if problems/questions. Ordered: CT Abdomen/Pelvis w/ Contrast 2. Abdominal pain, RLQ (R10.31: Right lower quadrant pain) see # 1 Ordered: CT Abdomen/Pelvis w/ Contrast 3. Abdominal pain, LLQ (R10.32: Left lower quadrant pain) see # 1 Ordered: CT Abdomen/Pelvis w/ Contrast Follow-up No qualifying data available Problem List/Past Medical History Ongoing Abdominal pain, LLQ Abdominal pain, RLQ Abnormal abdominal ultrasound BMI 30.0-30.9,adult Menometrorrhagia Historical No qualifying data Procedure/Surgical History Bilateral tubal ligation (11/23/2019). Medications SEROquel 50 mg Tab, 50 mg= 1 tab(s), Oral, Daily Allergies No Known Allergies Social History Alcohol Current, Beer, Wine, Liquor, 1-2 times per month, 04/03/2021 Substance Abuse - Denies Substance Abuse, 04/03/2021 Tobacco Never (less than 100 in lifetime) Tobacco Use:. Never Smokeless Tobacco Use:., 04/03/2021 Family History Diabetes mellitus type 2: Mother and Father. Hypertension: Mother and Father. Immunizations Vaccine Date Status Comments SARS-CoV-2 (COVID-19) mRNA BNT-162b2 vax 11/13/2020 Given Prophylaxis SARS-CoV-2 (COVID-19) mRNA BNT-162b2 vax 10/23/2020 Given Prophylaxis [facility] Comment on above: Result Comment: Elec tronically Signed By: SHEMAR LEE, Catarino Blair\Date and Time Signed: 04/03/21 10:45 EDT Summary Purpose Family History No Family History Records FoundNo Family History Records Found Advance Directives No Advanced Directives Records FoundNo Advanced Directives Records Found Additional Source Comments INFORMATION SOURCE (unrecogn ized section and content) DATE CREATED AUTHOR 05/01/2021 [facility] DATE CREATED AUTHOR AUTHOR'S BARRY ATION 01/30/2022 [facility] FOR RECORDS PERTAINING TO PATIENTS WHO ARE OR HAVE BEEN ENROLLED IN A CHEMICAL DEPENDENCY/SUBSTANCEABUSE PROGRAM, SOME INFORMATION MAY BE OMITTED. This clinical summary was aggregated from multiple sources. Caution should be exercised in using it in the provision of clinical care. This summary normalizes information from multiple sources, and as a consequence, information in this document may materially change the coding, format and clinical context of patient data. In addition, data may be omitted in some cases. CLINICAL DECISIONS SHOULD BE BASED ON THE PRIMARY CLINICAL RECORDS. [employer] provides no warranty or guarantee of the accuracy or completeness of information in this document.
[2025-04-03 12:11] VITALS: BP 116/84; PULSE 74; TEMP 37.3; O2SAT 100; BMI 27.3
--- NOTE | 2025-04-03 12:16 | XR_ITS ---
[facility] [place] [id number] Patient Name: KELSIE SORIANO MRN: [id number] date: 1995 Sex: F Assigned Patient Location: ER Current Patient Location: ER Accession/Order Number: [id number] Exam Date: 04/03/2025 12:25 Report Date: 04/03/2025 12:45 At the request of: RAUDEL NINO MD Procedure: XR foot RT 2V 2 views right foot plain film COMPARISON:None HISTORY: Acute right great toe pain. No acute injury ACUTE FINDINGS: No acute displaced fracture. sesamoid bone in the first interphalangeal joint plantar aspect. DEGENERATIVE CHANGE: Unremarkable SOFT TISSUE FINDINGS: Soft tissue swelling adjacent to the first metatarsophalangeal joint. JOINT EFFUSION: None POSTOP CHANGES: None BONE MINERALIZATION: Adequate XR/XR foot RT 2V IMPRESSION: No acute bony findings. Soft tissue swelling base of the first toe. Impression dictated by: Barron Singh M.D. 04/03/2025 12:45 PM Dictation Location: [place] [address] Electronically authenticated by: [id number] Y Date: 04/03/2025 12:45
--- NOTE | 2025-04-03 13:59 | ED_ITS ---
HPI HPI - General Adult General Chief complaint: Extremity Problem, Nontraumatic Stated complaint: R FOOT INJURY Time Seen by Provider: 04/03/25 12:58 Source: patient Mode of arrival: walk-in Limitations: no limitations History of Present Illness HPI narrative: 29-year-old female presents for pain at the base of her right great toe. There is no trauma history. She woke up this way and it has been red and it is tender to the touch. She has never had this problem before no other joint hurts. The pain is moderate and continuous. Related Data Previous Rx's ?Medication ?Instructions ?Recorded acetaminophen 300 mg-codeine 30 mg 1 tab PO Q6H PRN pa in 5 days #20 04/03/25 tablet tabs indomethacin 25 mg capsule See Rx Instructions .Route 04/03/25 .COMPLEX #40 caps Allergies Allergy/AdvReac Type Severity Reaction Status Date / Time No Known Drug Allergies Allergy Verified 04/03/25 12:11 Opioid HPI Opioid Management Most Recent Opioid Data: Last Pain Scale 6 Today, 12:11 Review of Systems ROS Narrative A ten point review of systems is negative except as noted above. PFSH PFSH Medical History (Updated 04/03/25 @ 13:55 by Carrillo Pettit MD) Anemia ?D64.9 - Anemia, unspecified (ICD-10) Depression ?F32.A - Depression, unspecified (ICD-10) Anxiety ?F41.9 - Anxiety disorder, unspecified (ICD-10) COVID-19 ?U07.1 - COVID-19 (ICD-10) Migraine ?G43.909 - Migraine, unspecified, not intractable, without status migrainosus (ICD-10) Kidney stones ?N20.0 - Calculus of kidney (ICD-10) Menorrhagia ?N92.0 - Excessive and frequent menstruation with regular cycle (ICD-10) Abnormal uterine bleeding ?N93.9 - Abnormal uterine and vaginal bleeding, unspecified (ICD-10) Pelvic pain ?R10.2 - Pelvic and perineal pain (ICD-10) Surgical History (Updated 02/08/23 @ 08:22 by Valerie Jaime NP) History of tubal ligation ?Z98.51 - Tubal ligation status (ICD-10) Family History (Updated 02/08/23 @ 08:22 by Valerie Jaime NP) Other Cirrhosis of liver Family history of diabetes mellitus Family history of hypertension Family history of liver cancer Family history of seizures Social History (Updated 02/08/23 @ 08:18 by Valerie Jaime NP) Within the past year, how often did you have a drink containing alcohol: 2-4 times a month Smoking status: Current some day smoker Non-prescribed substance use: denies use Previous occupational history: Factory Work Highest level of school completed/degree received: high school graduate Little interest or pleasure in doing things: not at all Feeling down, depressed, or hopeless: not at all Exam Narrative Exam Narrative: Nurses note and vital signs reviewed and patient is not hypoxic. General: The patient appears well and in no apparent distress. Patient is resting comfortably on cart. Skin: Warm, dry, no pallor noted. There is no rash noted. Head: Normocephalic, atraumatic Eye: Normal conjunctiva, no drainage Ears, Nose, Mouth, and Throat: oral mucosa is moist. Nares patent. Cardiovascular: Regular Rate and Rhythm Respiratory: Patient is in no distress, no accessory muscle use Back: non-tender GI: Soft and nontender Musculoskeletal: The base of the right hallux is erythematous and tender to touch. Skin intact. No erythema elsewhere or tenderness elsewhere in her foot. Neurological: A&O, normal speech Psychiatric: Cooperative Constitutional Vital Signs, click to edit/add: Last Vital Signs Temp 99.2 F 04/03/25 12:11 Pulse 74 04/03/25 12:11 Resp 14 04/03/25 12:11 BP 116/84 04/03/25 12:11 Pulse Ox 100 04/03/25 12:11 O2 Del Method Room Air 04/03/25 12:11 Course Vital Signs Vital signs: Vital Signs Temperature 99.2 F 04/03/25 12:11 Pulse Rate 74 04/03/25 12:11 Respiratory Rate 14 04/03/25 12:11 Blood Pressure 116/84 04/03/25 12:11 Pulse Oximetry 100 04/03/25 12:11 Oxygen Delivery Method Room Air 04/03/25 12:11 Temperature 99.2 F 04/03/25 12:11 Pulse Rate 74 04/03/25 12:11 Respiratory Rate 14 04/03/25 12:11 Blood Pressure 116/84 04/03/25 12:11 Pulse Oximetry 100 04/03/25 12:11 Oxygen Delivery Method Room Air 04/03/25 12:11 Medical Decision Making MDM Narrative Medical decision making narrative: The physical exam is consistent with a gout, despite her age. Should be treated with indomethacin and Tylenol 3 and follow-up with podiatry. She was also given a work note. Treatment diagnosis and follow-up were discussed with the patient. Differential Diagnosis Differential Diagnosis: Gout, toe sprain, fracture, arthritis Imaging Data X-ray right foot: Radiologist's impression: ITS Impressions Foot X-Ray 04/03/25 12:16 IMPRESSION: No acute bony findings. Soft tissue swelling base of the first toe. Impression dictated by: Barron Singh M.D. 04/03/2025 12:45 PM Dictation [facility] Electronically authenticated by: [id number] Y Date: 04/03/2025 12:45 Discharge Plan Discharge Chief Complaint: Extremity Problem, Nontraumatic Clinical Impression: Gout Patient Disposition: Home, Self-Care Time of Disposition Decision: 13:55 Condition: Good Mode of Transportation: Private Vehicle Prescriptions / Home Meds: New indomethacin 25 mg capsule See Rx Instructions .ROUTE .COMPLEX Qty: 40 0RF Rx Instructions: administer with food or milk 2 p.o. every 8 hours for 3 days then 1 p.o. every 8 hours for 3 days then 1 p.o. every 8 hours as needed pain acetaminophen-codeine 300-30 mg tablet 1 tab PO Q6H PRN (Reason: pain) 5 Days Qty: 20 0RF Print Language: Ukrainian Instructions: Gout (ED) Referrals: Sly Ramirez MD [Primary Care Provider, Family Practice] - 1 week Raciel Chappell DPM [Physician, Podiatry] - 1 week
== END 2025-04-03 14:18 | disposition home or self-care (01) ==
PROVIDERS: Emergency Provider Emergency Medicine; PCP Family Medicine
DX: M10.9 Gout, unspecified (principal); F17.200 Nicotine dependence, unspecified, uncomplicated
CPT/HCPCS: 73620; 99283